=== PATIENT | male | born 1960 | race Caucasian/White ===

== ENCOUNTER → 2017-09-24 | Outpatient (CLI) | payer BC ==
[~2017-09-24] MED LIST: ASPI-232 PO; ATOR10TA82 PO; OMEP20TA PO
--- NOTE | 2017-09-24 10:36 | DIAGNOSTIC IMAGING REPORT ---
ABDOMINAL ULTRASOUND, RIGHT UPPER QUADRANT HISTORY: ABDOMINAL BLOATING, GERD. COMPARISON: Abdomen and pelvis CT 07/02/2016. FINDINGS: Pancreas: Obscured by overlying bowel gas. Liver: There are 2 cysts with the largest measuring 2.4 cm. This contains a small septation. Gallbladder: No gallbladder wall thickening. No gallstones. CBD: 4 mm. Right kidney: No hydronephrosis. IMPRESSION: 1. Normal gallbladder. No gallstones. 2. Hepatic cysts. 3. The pancreas was obscured by overlying bowel gas. Electronically signed by: Omar Mccain M.D. 09/24/2017 10:34 AM Dictated Date/Time: 09/24/2017 10:33 AM
== END | disposition home or self-care (01) ==
LOC: C.ULTR 09:58
PROVIDERS: ATTEND Family Medicine
DX: R14.0 Abdominal distension (gaseous) (principal); K21.0 Gastro-esophageal reflux disease with esophagitis; K76.89 Other specified diseases of liver